=== PATIENT | female | born 1995 | race Caucasian/White ===

== ENCOUNTER 2016-06-23 12:52 | Emergency (ER) | payer BC ==
[2016-06-23 14:52] VITALS: BP 107/60
--- NOTE | 2016-06-23 14:52 | ED ---
HPI Chest Pain - HPI Summary HPI Summary: Patient is otherwise healthy 20yo female who presents with mid-sternal chest pain radiating to the midline back for 5 days intermittently. Pain is worse with inspiration and improves with rest. She has not exerted herself since noticing the chest pain. She first noticed the chest pain at rest. Denies recent illness. Denies fever. Denies GERD or other esophageal pathologies. Denies family history of cardiac problems including HTN, aortic dissection, elevated lipids or OK. Denies personal history as well. Denies taking any medications daily or any allergies. Patient denies any autoimmune disorders or malignancy. Patient states this has never happened to her before. She denies previous or current leg pain bilaterally. Denies recent travel, recent surgery or bedrest or smoking. Patient is on ortho tricycyline control x 6 months. Wells criteria shows 1.6% chance of PE. Pain is not felt on palpation. Pain is not worse with lying down in supine position. Denies cough or hemoptysis. - History of Current Complaint Chief Complaint: EDChestWallPain Time Seen by Provider: 06/23/16 14:13 Hx Obtained From: Patient Onset/Duration: Started Days Ago Timing: Intermittent, Lasting Minutes Initial Severity: Moderate Current Severity: Moderate Pain Intensity: 7 Pain Scale Used: 0-10 Numeric Chest Pain Location: Mid Sternal Chest Pain Radiates: Yes Chest Pain Radiates To:: Back - midline - in between shoulder blades Character: Heaviness, Pressure/Squeezing Aggravating Factor(s): Deep Breaths Associated Signs and Symptoms: Positive: Chest Pain - Risk Factors Pulmonary Embolism Risk Factors: Oral Contraceptives TAD Risk Factors: Negative - Allergy/Home Medications Allergies/Adverse Reactions: Allergies Allergy/AdvReac Type Severity Reaction Status Date / Time No Known Allergies Allergy Verified 03/28/16 10:05 PMH/Surg Hx/FS Hx/Imm Hx Previously Healthy: Yes Endocrine/Hematology History: Denies: Hx Diabetes, Hx Thyroid Disease Cardiovascular History: Denies: Hx Hypertension, Hx Pacemaker/ICD, Other Cardiovascular Problems/ Disorders Respiratory History: Denies: Hx Asthma, Hx Chronic Obstructive Pulmonary Disease (COPD), Other Respiratory Problems/Disorders GI History: Denies: Hx Ulcer, Other GI Disorders History: Denies: Hx Renal Disease Musculoskeletal History: Denies: Other Musculoskeletal History Sensory History: Reports: Hx Contacts or Glasses - CONTACTS, GLASSES Denies: Hx Hearing Aid Opthamlomology History: Reports: Hx Contacts or Glasses - CONTACTS, GLASSES Neurological History: Denies: Other Neuro Impairments/Disorders Psychiatric History: Reports: Hx Depression - 2 YEARS AGO Denies: Hx Panic Disorder - Surgical History Surgery Procedure, Year, and Place: subtaylor joint fussion to rt foot july 14 2013 Hx Anesthesia Reactions: No Infectious Disease History: No Infectious Disease History: Denies: Hx Hepatitis, Hx Human Immunodeficiency Virus (HIV), History Other Infectious Disease, Traveled Outside the [place] in Last 30 Days - Family History Family History: NEG for HTN or CAD - Social History Occupation: Employed Full-time Lives: With Family Alcohol Use: Rare Hx Substance Use: No Substance Use Type: Reports: None Hx Tobacco Use: No Smoking Status (MU): Never Smoked Tobacco Have You Smoked in the Last Year: No Review of Systems Constitutional: Negative Positive: Chest Pain - radiating to back Respiratory: Negative Gastrointestinal: Negative Positive: no symptoms reported, see HPI Musculoskeletal: Negative Skin: Negative Neurological: Negative Psychological: Normal All Other Systems Reviewed And Are Negative: Yes Physical Exam Triage Information Reviewed: Yes Vital Signs On Initial Exam: Initial Vitals Temp Pulse Resp BP Pulse Ox 98.3 F 66 20 109/63 100 06/23/16 12:56 06/23/16 12:56 06/23/16 12:56 06/23/16 12:56 06/23/16 12:56 Vital Signs Reviewed: Yes Appearance: Positive: Well-Appearing, No Pain Distress, Well-Nourished Skin: Positive: Warm, Skin Color Reflects Adequate Perfusion Head/Face: Positive: Normal Head/Face Inspection Eyes: Positive: EOMI, MAURIZIO, Conjunctiva Clear ENT: Positive: Hearing grossly normal Neck: Positive: Supple, Nontender, No Lymphadenopathy Respiratory/Lung Sounds: Positive: Clear to Auscultation, Breath Sounds Present Cardiovascular: Positive: Normal, RRR, Pulses are Symmetrical in both Upper and Lower Extremities - no homans sign bilaterally Abdomen Description: Positive: Nontender Neurological: Positive: Sensory/Motor Intact, Alert, Oriented to Person Place, Time, Speech Normal AVPU Assessment: Alert Diagnostics - Vital Signs Vital Signs Temp Pulse Resp BP Pulse Ox 06/23/16 13:59 98.2 F 60 12 100/60 98 06/23/16 12:56 98.3 F 66 20 109/63 100 - Laboratory Lab Statement: Any lab studies that have been ordered have been reviewed, and results considered in the medical decision making process. Chest Pain Course/Dx - Course Course Of Treatment: Wells criteria at 1.6% for PE. Low suspician for PE but d/ t oral contraception will attempt to rule out with D-Dimer. No fever, otherwise healthy, eating and drinking OK. No family history of cardiac related isses. No leg pain past or present. Patient denies smoking, drugs or alcohol. D-dimer negative. Patient made aware and OK to be discharged home with ibuprofen 3x daily. Return to ED if symptoms worsen - Chest Pain Differential Diagnosis/HQI/PQRI: Angina, Chest Wall, Lower Respiratory Infection , Pulmonary Embolism - Diagnoses Provider Diagnoses: Chest wall pain Discharge - Discharge Plan Condition: Stable Disposition: HOME Patient Education Materials: Costochondritis (ED) Referrals: David Morales MD [Primary Care Provider] - Additional Instructions: Follow up with PCP. Ibuprofen 600mg three times daily for 3 days for discomfort and inflammation. I have given you information on costocondritis. I cannot be sure this is what you are experiencing, but would like you to have the information. If you develop worsening symptoms or your symptoms are not improving or you develop a fever, please come back to ED.
== END 2016-06-23 15:45 | disposition home or self-care (01) ==
LOC: ED 12:52
DX: R07.89 Other chest pain (principal); M54.9 Dorsalgia, unspecified
CPT/HCPCS: 36415; 85379; 99282

== ENCOUNTER 2016-10-23 11:37 | Emergency (ER) | payer BC | END 2016-10-23 11:50 | disposition left against medical advice (07) | LOC: UCEAST 11:37 | DX: S09.90XA Unspecified injury of head, initial encounter (principal); X58.XXXA Exposure to other specified factors, initial encounter; Y92.9 Unspecified place or not applicable ==